=== PATIENT | female | born 1945 | race Caucasian/White ===

== ENCOUNTER 2018-06-16 06:50 | Observation (INO) | payer OTHER, MEDICARE ==
[~2018-06-16] VITALS: Ht 177.8 cm; Wt 85.3 kg
--- NOTE | ~2018-06-16 | EKG ---
[address] [address] [place] [address] ELECTROCARDIOGRAM REPORT Name: NABEEL POLLARD [id number] Admission: 06/16/18 Attend Phys: Rhys Lim MD, Discharge: Date of : 41 Report #: [id number] THIS REPORT FOR: //name// [facility] Test Date: 2018-06-16 Test Time: 07:22:47 Pat Name: NABEEL POLLARD Department: Room: Gender: F Photo Lab Technician: Teofilo MACIAS : 1945 Requested By: Rhys Lim Order Number: [id number] MD: Anival Canela Measurements Intervals [place] Rate: 82 P: 72 NC: 164 QRS: 65 QRSD: 95 T: 55 QT: 408 QTc: 477 Interpretive Statements Sinus rhythm No significant abnormality No previous ECG available for comparison Electronically Signed On 06-16-2018 8:22:45 CDT by Anival Canela [email or web address] <ELECTRONICALLY SIGNED> By: Anival Canela MD, [facility] 06/16/18821 1 1 Anival Canela MD, FACC /EPI
--- NOTE | ~2018-06-16 | EKG ---
[address] [address] ELECTROCARDIOGRAM REPORT Name: NABEEL POLLARD Room #: 206-[facility].#: [id number] Admission: 06/16/18 Attend Phys: Rhys Lim MD, Discharge: 06/17/18 Date of : 41 Report #: [id number] THIS REPORT FOR: //name// [facility] Test Date: 2018-06-16 Test Time: 11:47:44 Pat Name: NABEEL POLLARD Department: Room: [facility] Gender: F Die Tripper: Teofilo MACIAS : 1945 Requested By: Rhys Lim Order Number: [id number] MD: Anival Canela Measurements Intervals [place] Rate: 63 P: 28 [place]: 185 QRS: 63 QRSD: 101 T: 61 QT: 481 QTc: 493 Interpretive Statements Sinus rhythm Borderline prolonged QT interval Compared to ECG 06/16/2018 07:22:47 No significant changes Electronically Signed On 06-17-2018 16:43:35 CDT by Anival Canela [email or web address] <ELECTRONICALLY SIGNED> By: Anival Canela MD, [facility] 06/17/18 1643 1147 1147 Anival Canela MD, [facility] /EPI
--- NOTE | ~2018-06-16 | EKG ---
[address] [address] ELECTROCARDIOGRAM REPORT Name: NABEEL POLLARD Room #: 206-[facility]..#: [id number] Admission: 06/16/18 Attend Phys: Rhys Lim MD, Discharge: 06/17/18 Date of : 41 Report #: [id number] THIS REPORT FOR: //name// [facility] Test Date: 2018-06-17 Test Time: 06:47:49 Pat Name: NABEEL POLLARD Department: Room: [facility] Gender: F Manager Acquisition: : 1945 Requested By: Rhys Lim Order Number: [id number] MD: Anival Canela Measurements Intervals [place] Rate: 68 P: -22 [place]: 142 QRS: 72 QRSD: 95 T: 73 QT: 460 QTc: 490 Interpretive Statements Sinus rhythm Borderline prolonged QT interval Baseline wander in lead(s) V4,V6 Compared to ECG 06/16/2018 07:22:47 No significant change was found Electronically Signed On 06-17-2018 16:49:18 CDT by Anival Canela [email or web address] <ELECTRONICALLY SIGNED> By: Anival Canela MD, [facility] 06/17/18 [phone] Anival Canela MD, [facility] /EPI
--- NOTE | ~2018-06-16 | CATHLAB ---
[facility] [place] [address] INVASIVE PROCEDURE REPORT Name: NABEEL POLLARD Room #: 206-P [facility] [place] ..#: [id number] Admission: 06/16/18 Attend Phys: Rhys Lim, Discharge: 06/17/18 Date of : 41 Date of Service: 06/22/18 213 Report #: [id number] THIS REPORT FOR: //name// APPROVED REPORT Study performed: 06/16/2018 08:07:49 Patient Details Patient Status: Out-Patient Room #: The patient is a 72 year-old female Event Personnel Guy Farfan RN RN, Lilly Felix RTR, Carina Addison Gerald Cardiac Rehab Nurse, Zunilda Estrada Monitor, Albina Elkins Ic Designer Standard Cells Procedures Performed Art Access - R femoral artery* 73546 Initial Mod Sed Same Phys/QHP Gr5y 360730 70391 Mod Sed Same Phys/QHP Ea 742784 Left Heart Cath w/or w/o Coronaries 4013114 [facility] Aortogram Abdominal Peripheral Angio [address] w/wo Plasty Single OM 893377 Hemostasis w/ Mynx Indication Chest pain Procedure Narrative The patient was brought electively to the Cardiac Catheterization Laboratory and was prepped and draped in a sterile manner. The Right Groin^ was infiltrated with 1% Lidocaine subcutaneous anesthesia. A PINNACLE 6FR Sheath #[id number] sheath was inserted into the RFA^. Coronary angiography was performed using coronary diagnostic catheters. The right coronary system was accessed and visualized with a JR 4 catheter. The left coronary system was accessed and visualized with a JL 4 catheter. The left ventricle was accessed and visualized with a Pigtail catheter. Left ventriculogram was performed in CALVO projection. An aortogram of the abdominal aorta was performed. Pre-demployment femoral angiogram was performed . Closure device was deployed with a 6 Fr Mynx. The patient tolerated the procedure well and there were no complications associated with the procedure. There was no hematoma. Intraoperative Conscious Sedation Sedation start time: 08:37 Case end Time: 09:[address] [address] INVASIVE PROCEDURE REPORT Name: NANETTENABEEL PATINO Room #: 206-P [facility] [place] .R.#: [id number] Admission: 06/16/18 Attend Phys: Rhys Lim, Discharge: 06/17/18 Date of : 41 Date of Service: 06/22/18 2132 Report #: [id number] Fentanyl 100 mcg Versed 2 mg Fluoro Time: 8.08 minutes Dose: DAP 7810.50 cGycm2 1016 mGy Contrast Type and Amount: Omnipaque 125 ml Hemodynamics The aortic pressure is 145/58 mmHg with a mean of 85 mmHg. The left ventricular pressure is 149/3 mmHg with a mean of mmHg. The left ventricular end diastolic pressure is 16 mmHg. PCI Technique Lesion Percutaneous coronary intervention was performed on the first obtuse marginal branch segment. A LAUNCHER 6FR EBU 3.5 #[id number] Guide Catheter was used to engage the ostium. A Luge Wire .014 x 182CM #[id number] Interventional Guidewire was used to cross the lesion. BALLOON DILATION A Balloon catheter Sprinter OTW 2.5 x 12 #[id number] was inserted and inflated up to 6.00atm for 16seconds. Additional Inflation: 8.00atm for 30seconds. Additional Inflation: 10.00atm for 14seconds. STENT DEPLOYMENT A drug-eluting stent RESOLUTE OTW 2.5 X 12 #[id number] was inserted and inflated up to 12.00atm for 24seconds. Additional Inflation: 14.00atm for 25seconds. Conclusion #1 successful PTCA stent of the ostial large OM system 95% to 0% with a 2 5 x 12 resolute drug-eluting stent ROMA grade 3 flow #2 left main free of disease giving rise to LAD and circumflex #3 LAD extends to the apex with mild disease. #4 small but some LV distribution of the essentially nondominant right with mild irregularities #5 hyperdynamic LV function EF 65% #6 abdominal aorta is intact bilateral renal arteries Exhibit 40-50% proximal stenosis will follow noninvasively Recommendations and plan: Continue aggressive risk factor modification dual antiplatelet therapy to CCU in stable condition. <ELECTRONICALLY SIGNED> By: Rhys Lim MD, FACC 06/22/182131 31 31 Rhys Lim MD, FACC /INF
--- NOTE | ~2018-06-16 | D ---
[facility] [place] [address] DISCHARGE SUMMARY Name: NABEEL POLLARD Room #: 206-P [facility] Osiel Rouse#: [id number] Admission: 06/16/18 Attend Phys: Rhys Lim MD, Discharge: 06/17/18 Date of : 41 Report #: [id number] THIS REPORT FOR: //name// CC: Rhys Concepcion MD [facility] COURSE: The patient was brought in for an elective cardiac catheterization. She has had accelerating unstable anginal symptoms. An abnormal nuclear test suggesting inferior lateral wall ischemia. She restarted her metformin in 48 hours. She was brought to the catheterization lab and there was a large codominant circumflex artery, high-grade 98% lesion in the proximal first OM which had a big area of distribution. I was able to dilate and stent placed, a 2.5 x 12 Resolute drug-eluting stent, postdilated to 2.7 mm in size. She tolerated it well. Laboratory work is unremarkable this morning. A small hematoma with no bruit. No significant discomfort. She will be discharged to home on the current regimen: Restart her metformin in 48 hours and full aspirin for a month, Crestor, rosuvastatin 20, trazodone, Estrace, gabapentin, Plaquenil, omeprazole, primidone, tramadol, midodrine, tamsulosin and her vitamins. No lifting for 48 hours. No lying in tub, Jacuzzi or moon for a week. No MRI or dental work for 3 months. DISCHARGE DIAGNOSES: 1. Coronary artery disease with successful percutaneous transluminal coronary angioplasty stent of the circumflex obtuse marginal codominant vessel, preserved left ventricular function. 2. Hypertension. 3. Hypercholesterolemia. 4. Diabetes. FOLLOWUP: Follow up with Dr. Concepcion will be in the next month. Heart healthy diet. Cardiac rehab would be beneficial to her in addition. Thank you for allowing me to assist in the care of this patient. <ELECTRONICALLY SIGNED> By: Rhys Lim MD, FACC 06/22/18 0858 0915 1200 Rhys Lim MD, FACC /nt
[~2018-06-16 06:50] MED LIST: ANTI-GAS600 UNIT PO; CENTRUM SILVER1 EAC2 PO; CYMBALTA60 MG PO; DOMPERIDONE PO; ESTRACE1 MG PO; HYDROXYCHLOROQ200 M1 PO; IRON PO; IRON325 PO; LOVASTAT40 PO; METFORMIN HCL500 MG PO; NAPROSYN500 MG PO; NEURONTIN 300300 M1 PO; OMEPRAZOLE40 MG PO; OXYBUTYNIN 5 MG5 M2 PO; PRIMIDONE50 MG PO; TRAMADOL 50 MG50 MG PO; TRAZODONE 150150 M1 PO; [UNRECOGNIZED DRUG - OTHER] PO; [UNRECOGNIZED DRUG - OTHER] PO
[2018-06-16 07:09] VITALS: BP 143/65
[2018-06-16 07:24] LABS: HEMATOCRIT 37.8 % (37.0-47.0); HEMOGLOBIN 12.8 gm/dL (12.0-15.0); MCH 32.1 pg (26.0-34.0); MCHC 33.7 g/dL (28.0-37.0); MCV 95.4 fL (80.0-100.0); RBC 3.97 mil/uL (4.20-5.00); RDW 14.1 % (10.5-14.5); WBC 5.7 thou/uL (4.0-11.0)
[2018-06-16] MEDS ORDERED: MIDODRINE HCL 55 M1 PO (07:39)
[2018-06-16] MEDS ORDERED: FLONASE 0.05%50 MCG NASAL (07:39)
[2018-06-16 07:40] LABS: CALCIUM 8.9 mg/dL (8.5-10.1); CREATININE 0.7 mg/dL (0.6-1.0); POTASSIUM 3.9 mmol/L (3.5-5.1)
[2018-06-16] MEDS ORDERED: FLOMAX0.4 MG PO (07:40)
[2018-06-16] MEDS ORDERED: MYRBETRIQ50 MG PO (07:40)
[2018-06-16] MEDS ORDERED: MOVE FREE ULTR1 EAC1 PO (07:41)
[2018-06-16] MEDS ORDERED: PRESERVISION L1 EACH PO (07:42)
[2018-06-16] MEDS ORDERED: CRAN-MAX500 MG PO (07:43)
[2018-06-16] MEDS ORDERED: PROBIOTIC1 EAC2 PO (07:43)
[2018-06-16] MEDS ORDERED: ALPHA LIPOIC A600 M1 PO (07:45)
[2018-06-16 09:50] VITALS: BP 154/73
[2018-06-16] MEDS ORDERED: ASPIRIN325 PO (10:57)
[2018-06-16 11:50] VITALS: BP 197/98
[2018-06-16 16:11] VITALS: BP 166/76
[2018-06-16 21:27] VITALS: BP 195/90
[2018-06-17 00:46] VITALS: BP 137/67
[2018-06-17 04:00] LABS: HEMATOCRIT 30.8 % (37.0-47.0); MCH 31.8 pg (26.0-34.0); MCHC 33.2 g/dL (28.0-37.0); MCV 95.6 fL (80.0-100.0); RBC 3.22 mil/uL (4.20-5.00); WBC 5.2 thou/uL (4.0-11.0)
[2018-06-17 04:03] VITALS: BP 137/62
[2018-06-17 04:07] LABS: HEMOGLOBIN 10.2 gm/dL (12.0-15.0)
[2018-06-17 04:14] LABS: ANION GAP 6 mmol/L (7-16); BUN 7 mg/dL (7-18); CHLORIDE 107 mmol/L (98-107); CO2 28 mmol/L (21-32); CREATININE 0.5 mg/dL (0.6-1.0); GLUCOSE 131 mg/dL (74-106); POTASSIUM 3.8 mmol/L (3.5-5.1); SODIUM 141 mmol/L (136-145); TROPONIN-I <0.06 ng/mL (<0.06)
[2018-06-17 07:23] VITALS: BP 122/66
[2018-06-17] MEDS ORDERED: EFFIENT10 MG PO (08:05)
[2018-06-17] MEDS ORDERED: ASPIRIN325 PO (08:05)
[2018-06-17] MEDS ORDERED: CRESTOR20 MG PO (08:21)
[2018-06-17 10:05] VITALS: BP 122/66
== END 2018-06-17 11:28 | disposition home or self-care (01) ==
LOC: CATH 06:50 → 2N 08:50 → ENTRNSPT 06-17 11:20 → EDTRNSPTSTS 06-17 11:23 → 2N 06-17 11:28
PROVIDERS: Internal Medicine Cardiovascular Disease
DX: I25.110 Atherosclerotic heart disease of native coronary artery with unstable angina pectoris (principal); I21.19 ST elevation (STEMI) myocardial infarction involving other coronary artery of inferior wall; I10 Essential (primary) hypertension; E78.00 Pure hypercholesterolemia, unspecified; E11.9 Type 2 diabetes mellitus without complications; E78.5 Hyperlipidemia, unspecified; K21.9 Gastro-esophageal reflux disease without esophagitis; E03.9 Hypothyroidism, unspecified; M19.90 Unspecified osteoarthritis, unspecified site

== ENCOUNTER → 2020-03-27 | Outpatient (CLI) | payer OTHER, MEDICARE ==
[~2020-03-27] MED LIST changes: +ALPHA LIPOIC A600 M1 PO; +ASPIRIN325 PO; +CRAN-MAX500 MG PO; +CRESTOR20 MG PO; +EFFIENT10 MG PO; +FLOMAX0.4 MG PO; +FLONASE 0.05%50 MCG NASAL; +MIDODRINE HCL 55 M1 PO; +MOVE FREE ULTR1 EAC1 PO; +MYRBETRIQ50 MG PO; +PRESERVISION L1 EACH PO; +PROBIOTIC1 EAC2 PO
== END ==
LOC: SJCVC 11:15
DX: I25.10 Atherosclerotic heart disease of native coronary artery without angina pectoris (principal); E78.00 Pure hypercholesterolemia, unspecified; I10 Essential (primary) hypertension; I70.1 Atherosclerosis of renal artery; I65.23 Occlusion and stenosis of bilateral carotid arteries; E11.9 Type 2 diabetes mellitus without complications; K21.9 Gastro-esophageal reflux disease without esophagitis; E03.9 Hypothyroidism, unspecified; M19.90 Unspecified osteoarthritis, unspecified site; Z79.82 Long term (current) use of aspirin; Z79.899 Other long term (current) drug therapy

== ENCOUNTER → 2020-08-31 | Outpatient (CLI) | payer OTHER, MEDICARE ==
[~2020-08-31] VITALS: Ht 177.8 cm; Wt 85.4 kg
[2020-08-31 08:40] VITALS: BP 119/64
[2020-08-31 09:32] LABS: HEMATOCRIT 37.6 % (37.0-47.0); HEMOGLOBIN 12.3 gm/dL (12.0-15.0); MCHC 32.6 g/dL (28.0-37.0); MCV 98.1 fL (80.0-100.0); RBC 3.84 mil/uL (4.20-5.00); RDW 13.2 % (10.5-14.5); WBC 6.2 thou/uL (4.0-11.0)
[2020-08-31 10:59] VITALS: BP 152/82
[2020-08-31 11:18] VITALS: BP 131/67
[2020-08-31 11:34] VITALS: BP 147/78
== END ==
LOC: CATH 07:34
PROVIDERS: ATTEND Nuclear Medicine Nuclear Cardiology
DX: M81.0 Age-related osteoporosis without current pathological fracture (principal); S32.019A Unspecified fracture of first lumbar vertebra, initial encounter for closed fracture; I25.10 Atherosclerotic heart disease of native coronary artery without angina pectoris; Z79.899 Other long term (current) drug therapy; X58.XXXA Exposure to other specified factors, initial encounter; Y93.89 Activity, other specified; Y92.89 Other specified places as the place of occurrence of the external cause; Y99.8 Other external cause status

== ENCOUNTER → 2020-09-18 | Outpatient (CLI) | payer OTHER, MEDICARE | LOC: SJCVC 13:04 | PROVIDERS: ATTEND Nuclear Medicine Nuclear Cardiology | DX: M80.08XD Age-related osteoporosis with current pathological fracture, vertebra(e), subsequent encounter for fracture with routine healing (principal); I25.10 Atherosclerotic heart disease of native coronary artery without angina pectoris; E78.5 Hyperlipidemia, unspecified; E08.00 Diabetes mellitus due to underlying condition with hyperosmolarity without nonketotic hyperglycemic-hyperosmolar coma (NKHHC); I10 Essential (primary) hypertension; Z95.5 Presence of coronary angioplasty implant and graft; Z79.899 Other long term (current) drug therapy ==

== ENCOUNTER → 2020-12-18 | Outpatient (CLI) | payer OTHER, MEDICARE | LOC: SJCVC 11:16 | PROVIDERS: ATTEND Internal Medicine Cardiovascular Disease | DX: E78.5 Hyperlipidemia, unspecified (principal); I10 Essential (primary) hypertension; I25.10 Atherosclerotic heart disease of native coronary artery without angina pectoris; I70.1 Atherosclerosis of renal artery; I65.23 Occlusion and stenosis of bilateral carotid arteries; E08.00 Diabetes mellitus due to underlying condition with hyperosmolarity without nonketotic hyperglycemic-hyperosmolar coma (NKHHC); K21.9 Gastro-esophageal reflux disease without esophagitis; E03.9 Hypothyroidism, unspecified; M81.0 Age-related osteoporosis without current pathological fracture; Z88.2 Allergy status to sulfonamides ==

== ENCOUNTER → 2021-08-15 | Outpatient (CLI) | payer OTHER, MEDICARE | LOC: SJCVCIMAG 08-12 09:32 | PROVIDERS: ATTEND Internal Medicine Cardiovascular Disease | DX: I25.10 Atherosclerotic heart disease of native coronary artery without angina pectoris (principal); E78.00 Pure hypercholesterolemia, unspecified; E08.00 Diabetes mellitus due to underlying condition with hyperosmolarity without nonketotic hyperglycemic-hyperosmolar coma (NKHHC); I65.23 Occlusion and stenosis of bilateral carotid arteries; I70.1 Atherosclerosis of renal artery; I95.1 Orthostatic hypotension; K21.9 Gastro-esophageal reflux disease without esophagitis; E78.5 Hyperlipidemia, unspecified; Z79.899 Other long term (current) drug therapy; Z79.82 Long term (current) use of aspirin; Z88.2 Allergy status to sulfonamides ==